=== PATIENT | male | born 1975 | race Caucasian/White ===

== ENCOUNTER 2018-05-28 18:41 | Emergency (ER) | payer MEDICARE ==
[~2018-05-28] VITALS: Ht 182.9 cm; Wt 80.0 kg
[~2018-05-28 18:41] MED LIST: ASPI81TA52 PO
[2018-05-28 18:45] VITALS: BP 128/92
[2018-05-28] MEDS ORDERED: NO HOME MEDS (19:01)
== END 2018-05-28 19:18 ==
LOC: ER 18:41
DX: S01.111A Laceration without foreign body of right eyelid and periocular area, initial encounter (principal); S50.812A Abrasion of left forearm, initial encounter; S50.811A Abrasion of right forearm, initial encounter; F12.90 Cannabis use, unspecified, uncomplicated; Z79.82 Long term (current) use of aspirin; Z79.899 Other long term (current) drug therapy; Y04.2XXA Assault by strike against or bumped into by another person, initial encounter; Y93.89 Activity, other specified; Y92.89 Other specified places as the place of occurrence of the external cause; Y99.8 Other external cause status
CPT/HCPCS: 12011; 99283